=== PATIENT | female | born 1950 | race Caucasian/White ===

== ENCOUNTER → 2017-04-12 | Outpatient (CLI) | payer BC ==
[~2017-04-12] MED LIST: CLR10; CLTP; ESCI10TA17 PO; FROVA PO; MULT-506; RIZA10TA18; TOPI100T20
--- NOTE | 2017-04-12 13:27 | MAMMOGRAPHY REPORT ---
BILATERAL DIGITAL SCREENING MAMMOGRAM TOMOSYNTHESIS WITH CAD: 04/12/2017 CLINICAL HISTORY: Routine screening. Patient has no complaints. TECHNIQUE: Breast tomosynthesis in addition to standard 2D mammography was performed. Current study was also evaluated with a Computer Aided Detection (CAD) system. COMPARISON: Comparison is made to exams dated: 04/11/2016 mammogram, 04/08/2015 mammogram, 04/07/2014 m ammogram, 04/06/2013 mammogram, 04/03/2012 mammogram, and 04/02/2011 mammogram - [facility]. BREAST COMPOSITION: The tissue of both breasts is almost entirely fatty. FINDINGS: No suspicious masses, calcifications, or areas of architectural distortion are noted in ei ther breast. There has been no significant interval change compared to prior exams. There are stabl e post surgical changes from bilateral reduction mammoplasty. Scattered bilateral benign-appearing c alcifications are not significantly changed. Prominent lymph node overlying the right pectoralis mus gina on the MLO view is stable dating back to at least the 2007 exam. IMPRESSION: ACR BI-RADS CATEGORY 2: BENIGN There is no mammographic evidence of malignancy. A 1 year screening mammogram is recommended. The pa tient will receive written notification of the results. Approximately 10% of breast cancers are not detected with mammography. A negative mammographic report should not delay biopsy if a clinically suggestive mass is present. Tigist Weston M.D. /:04/12/2017 11:19:05 Ingredient Scaler: Evelia LIZAMA(Miquel)(Lois)(BD), [facility] letter sent: Normal 1/2 BI-RADS Code: ACR BI-RADS Category 2: Benign
== END | disposition home or self-care (01) ==
LOC: C.MAMM 10:25
PROVIDERS: ATTEND Family Medicine
DX: Z12.31 Encounter for screening mammogram for malignant neoplasm of breast (principal)

== ENCOUNTER 2018-02-01 23:41 | Emergency (ER) | payer BC ==
[~2018-02-01] VITALS: Ht 157.5 cm; Wt 64.6 kg
[~2018-02-01 23:41] MED LIST changes: -TOPI100T20; +TOPI100T20 PO
[2018-02-01 23:46] VITALS: TEMP 36.9; Ht 157.5 cm; Wt 64.6 kg
[2018-02-01] MEDS ORDERED: SODIUM CHLORIDE 0.9% 1000ML 1,000 ML IV STA (23:57)
[2018-02-01] MEDS ORDERED: ONDANSETRON INJ 2 MG/ML 2 ML VIAL IV STA (23:57)
[2018-02-02] MEDS ORDERED: FENTANYL CITRATE INJ 50 MCG/1 ML 2 ML VIAL IV STA (00:04)
--- NOTE | 2018-02-02 00:19 | EMERGENCY ROOM VISIT NOTE ---
History Report prepared by Gamal: Rony Coley Under the Supervision of: Dr. Ashley Rader M.D. First contact with patient: 23:50 Chief Complaint: ABDOMINAL PAIN Stated Complaint: STOMACH PAIN & BACK PAIN,VOMITING History of Present Illness The patient is a 67 year old female who presents to the Emergency Room with complaints of persistent vomiting since this afternoon. She notes that she has vomited four times today. She states that she was feeling fine earlier today. She reports that she has intermittent abdominal pain for a couple of weeks. She notes the abdominal pain is worsened during intercourse. She denies any diarrhea or abnormal vaginal bleeding. She notes the abdominal pain is primarily on her right side. She has a history of migraines and depression. She denies any other underlying medical problems. She denies any history of cholecystectomy. She denies any blood in her vomit. She denies any fevers. Per , the patient is hard of hearing. She notes that her last normal bowel movement was this morning. She reports eating a piece of broiled chicken, mashed potatoes, and a salad in a restaurant [id number] today. She notes that they had intercourse today as well and her abdomen began to hurt during and after intercourse. She denies any history of hysterectomy. She notes the vomiting is new. Source of History: patient, spouse/significant other Onset: since this afternoon Position: abdomen Quality: other (vomiting) Timing: other (persistent) Modifying Factors (Worsening): other (intercourse) Associated Symptoms: No diarrhea Note: She denies any abnormal vaginal bleeding. Review of Systems See HPI for pertinent positives & negatives. A total of 10 systems reviewed and were otherwise negative. Past Medical & Surgical Medical Problems: (1) varicose veins Surgical Problems: (1) H/O dilation and curettage (2) Hx of tonsillectomy Family History Aneurysm Cancer Kidney disease Kidney stones Social History Smoking Status: Never Smoker Smokeless Tobacco Use: No Alcohol Use: occasionally Marital Status: in relationship Housing Status: lives with significant other Occupation Status: employed Current/Historical Medications Scheduled Aripiprazole (Abilify), 5 MG PO DAILY Caffeine (Caffeine), 200 MG PO daily as directed Calcium Carbonate-Vitamin D (Calcium 600 + D), 2 TABS PO DAILY Escitalopram (Lexapro), 30 MG PO QPM Multivitamins/Minerals (Mvi With Minerals), 1 TAB PO DAILY Omeprazole (Prilosec), 20 MG PO QAM Probiotic Product (Mi-Pay), 1 CAP PO DAILY Ranitidine Hcl (Zantac), 300 MG PO HS Simvastatin (Zocor), 40 MG PO QPM Tamsulosin Hcl (Flomax), 0.4 MG PO DAILY Topiramate (Topamax), 100 MG PO BID Scheduled PRN Acetaminophen (Tylenol 8 Hour Arthritis), 650 MG PO Q8 PRN for Pain or Fever Hydrocodone/Acetaminophen 5MG/325MG ([place] 5MG/325MG), 1-2 TABLETS PO Q6 PRN for Pain Tramadol (Ultram), 50 MG PO Q6 PRN for Moderate Pain Allergies Coded Allergies: Aspirin (Unverified Allergy, Unknown, 02/02/18) Physical Exam Vital Signs Date Time Temp Pulse Resp B/P (MAP) Pulse Ox O2 Delivery O2 Flow Rate FiO2 02/02/18 03:59 76 16 134/82 98 02/02/18 02:44 90 18 114/74 95 Room Air 02/02/18 02:02 95 20 129/81 99 Room Air 02/02/18 00:39 84 20 139/91 97 Room Air 02/02/18 00:33 92 02/01/18 23:46 36.9 87 18 155/79 97 Room Air Physical Exam Vital signs reviewed. General: Well-appearing, in no significant distress. HEENT: No scleral icterus, PERRLA, neck supple. Atraumatic. Cardiovascular: Regular rate and rhythm, no extra sounds. Pulmonary: Clear to auscultation bilaterally, normal work of breathing. Abdomen: Soft, tender to palpation in RUQ with no rebound, no guarding, nondistended, positive bowel sounds. Musculoskeletal: Atraumatic, no peripheral edema. No CVA tenderness. Neurologic: Patient awake alert and oriented x 3 Skin: Warm, dry, no rash Medical Decision & Procedures ER Provider Diagnostic Interpretation: Radiology results as stated below per my review and radiologist interpretation: US RUQ: Mild right hydroureteronephrosis. Consider CT of the abdomen and pelvis to exclude an obstructing lesion. Gallbladder sludge. No gallstones, gallbladder wall thickening or pericholecystic fluid. Common bile duct is within normal limits measuring 4 mm. Liver is unremarkable. Radiologist: Luca Piedra MD Study ready at 01:43 and initial results transmitted at 02:01 CT ABDOMEN & PELVIS With Contrast: Impression: 4 mm calculus within the mid to distal right ureter which causes mild hydroureteronephrosis. There are additional calcifications seen with the deep pelvis which are favored to represent phleboliths and less likely distal ureteral calculi. There are additional nonobstructing calculi within both kidneys. Additional findings: Lower thorax demonstrates dependent atelectasis. Liver, gallbladder, spleen, pancreas and adrenal glands are unremarkable. Appendix is not visualized. Stomach, small bowel, and colon are unremarkable. No acute osseous abnormality. Radiologist: Luca Piedra MD Study ready at 02:05 and initial results transmitted at 02:25 Laboratory Results 02/02/18 00:28 Red Blood Count 4.67, Mean Corpuscular Volume 89.7, Mean Corpuscular Hemoglobin 30.4, Mean Corpuscular Hemoglobin Concent 33.9, Mean Platelet Volume 10.2, Neutrophils (%) (Auto) 85.8, Lymphocytes (%) (Auto) 9.1, Monocytes (%) (Auto) 4.1, Eosinophils (%) (Auto) 0.3, Basophils (%) (Auto) 0.4, Neutrophils # (Auto) 9.67, Lymphocytes # (Auto) 1.02, Monocytes # (Auto) 0.46, Eosinophils # (Auto) 0.03, Basophils # (Auto) 0.04 02/02/18 00:28 Test 02/02/18 00:25 02/02/18 00:28 Urine Color ORANGE Urine Appearance TURBID (CLEAR) Urine pH 8.5 (4.5-7.5) Urine Specific [place] 1.017 (1.000-1.030) Urine Protein NEG (NEG) Urine Glucose (UA) NEG (NEG) Urine Ketones NEG (NEG) Urine Occult Blood 3+ (NEG) Urine Nitrite NEG (NEG) Urine Bilirubin NEG (NEG) Urine Urobilinogen NEG (NEG) Urine Leukocyte Esterase SMALL (NEG) Urine WBC (Auto) 1-5 /hpf (0-5) Urine RBC (Auto) >30 /hpf (0-4) Urine Hyaline Casts (Auto) 1-5 /lpf (0-5) Urine Epithelial Cells (Auto) >30 /lpf (0-5) Urine Bacteria (Auto) NEG (NEG) White Blood Count 11.25 K/uL (4.8-10.8) Red Blood Count 4.67 M/uL (4.2-5.4) Hemoglobin 14.2 g/dL (12.0-16.0) Hematocrit 41.9 % (37-47) Mean Corpuscular Volume 89.7 fL (80-100) Mean Corpuscular Hemoglobin 30.4 pg (25-34) Mean Corpuscular Hemoglobin Concent 33.9 g/dl (32-36) Platelet Count 232 K/uL (130-400) Mean Platelet Volume 10.2 fL (7.4-10.4) Neutrophils (%) (Auto) 85.8 % Lymphocytes (%) (Auto) 9.1 % Monocytes (%) (Auto) 4.1 % Eosinophils (%) (Auto) 0.3 % Basophils (%) (Auto) 0.4 % Neutrophils # (Auto) 9.67 K/uL (1.4-6.5) Lymphocytes # (Auto) 1.02 K/uL (1.2-3.4) Monocytes # (Auto) 0.46 K/uL (0.11-0.59) Eosinophils # (Auto) 0.03 K/uL (0-0.5) Basophils # (Auto) 0.04 K/uL (0-0.2) RDW Standard Deviation 43.9 fL (36.4-46.3) RDW Coefficient of Variation 13.5 % (11.5-14.5) Immature Granulocyte % (Auto) 0.3 % Immature Granulocyte # (Auto) 0.03 K/uL (0.00-0.02) Anion Gap 8.0 mmol/L (3-11) Est Creatinine Clear Calc Drug Dose 44.0 ml/min Estimated GFR () 59.9 Estimated GFR (Non- 51.7 BUN/Creatinine Ratio 20.8 (10-20) Calcium Level 9.4 mg/dl (8.5-10.1) Magnesium Level 2.0 mg/dl (1.8-2.4) Total Bilirubin 0.4 mg/dl (0.2-1) Direct Bilirubin < 0.1 mg/dl (0-0.2) Aspartate Amino Transf (AST/SGOT) 15 U/L (15-37) Alanine Aminotransferase (ALT/SGPT) 21 U/L (12-78) Alkaline Phosphatase 80 U/L (45-117) Total Protein 7.5 gm/dl (6.4-8.2) Albumin 3.9 gm/dl (3.4-5.0) Lipase 99 U/L (73-393) Laboratory results per my review. Medications Administered Medications (Trade) Dose Ordered Sig/Phani Route Start Time Stop Time Status Last Admin Dose Admin Sodium Chloride 1,000 ml @ 250 mls/hr Q4H STAT IV 02/01/18 23:57 02/02/18 03:56 DC 02/02/18 00:37 250 MLS/HR Ondansetron HCl (Zofran Inj) 4 mg NOW STAT IV 02/01/18 23:57 02/02/18 00:00 DC 02/02/18 00:38 4 MG Fentanyl Citrate (Fentanyl Inj) 50 mcg NOW STAT IV 02/02/18 00:04 02/02/18 00:05 DC 02/02/18 00:38 50 MCG Morphine Sulfate (MoRPHine SULFATE INJ) 2 mg NOW STAT IV 02/02/18 01:06 02/02/18 01:07 DC 02/02/18 01:12 2 MG ED Course 0000: Past medical records reviewed. The patient was evaluated in room B8. A complete history and physical examination was performed. 2357: Ordered Zofran 4 mg IV and Sodium Chloride 1,000 ml @ 250 mls/hr IV 0004: Ordered Fentanyl 50 mcg IV 0106: Ordered Morphine Sulfate 2 mg IV 0306: I reassessed the patient at this time. I discussed the results and treatment plan with the patient. I answered all pertaining questions that she had. She expressed understanding and verbalized agreement. The patient will be discharged home. 0330: Ordered Zofran 1 homepack PO and Hydrocodone Bitart/Acetaminophen 1 homepack PO Medical Decision Differential diagnosis: Etiologies such as gastroenteritis, food borne illness, infections, appendicitis , diverticulitis, inflammatory bowel disease, obstruction, GI bleed, biliary pathology, as well as others were entertained. This pt was evaluated and appeared to be in some discomfort. Pt has tenderness to RUQ on exam. IV access was obtained and lab work was drawn. PT was placed on the cardiac cath lab technologist. She wa sgiven IV fentanyl and zofran for pain. US RUQ was performed and is negative for acute cholecystitis, but reveals hydronephrosis. UA is significant for blood. Pt was then sent to CT r/o renal calculi. This study was + for a 4mm calculi in the mid-distal right ureter. Pt was advised of the findings. She was given a norco HP and a Rx. She was also started on flomax for 7 days. Pt was given urologic f/u and CM will assist in scheduling this week with Dr Hartmann. Pt will return to the ED for worsening of symptoms or any medical concerns. Medication Reconcilliation Current Medication List: was personally reviewed by me Blood Pressure Screening Patient's blood pressure: Elevated blood pressure Blood pressure disposition: Elevated BP felt to be situational Impression Primary Impression: Right ureteral calculus Scribe Attestation The scribe's documentation has been prepared under my direction and personally reviewed by me in its entirety. I confirm that the note above accurately reflects all work, treatment, procedures, and medical decision making performed by me. Departure Information Dispostion Home / Self-Care Prescriptions Hydrocodone/Acetaminophen 5MG/325MG ([place] 5MG/325MG) Tab 1-2 TABLETS PO Q6 Y for Pain, #20 TAB Prov: Ashley Rader M.D. 02/02/18 Tamsulosin Hcl (FLOMAX) 0.4 Mg Cap 0.4 MG PO DAILY for 7 Days, #7 CAP Prov: Ashley Rader M.D. 02/02/18 Referrals Willem Nelson III, M.D. (PCP) Enoch Hartmann MD, Urology Forms Call Back Authorization, HOME CARE DOCUMENTATION FORM, IMPORTANT VISIT INFORMATION Patient Instructions My [facility] Additional Instructions Diagnosis: Right ureteral calculus [place] 1-2 tabs every 6 hours as needed for severe pain. Do not drive or take Tylenol with this medication. Flomax 0.4 mg 1 time daily Drink plenty of clear fluids. You should receive a phone call Saturday with an appointment time for urology consultation within the next week or so. Please see Dr. Hartmann's information below. Call the emergency department at [phone] if you have not heard from them by Saturday. Return to the emergency department for worsening symptoms or any medical concerns.
[2018-02-02 00:42] LABS: HEMATOCRIT 41.9 % (37-47); HEMOGLOBIN 14.2 g/dL (12.0-16.0); MEAN CELL VOLUME 89.7 fL (80-100); MEAN CORPUSCULAR HEMOGLOBIN 30.4 pg (25-34); MEAN CORPUSCULAR HGB CONC 33.9 g/dl (32-36); MEAN PLATELET VOLUME 10.2 fL (7.4-10.4); PLATELET COUNT 232 K/uL (130-400); RED CELL DISTRIBUTION WIDTH CV 13.5 % (11.5-14.5); RED CELL DISTRIBUTION WIDTH SD 43.9 fL (36.4-46.3); WHITE BLOOD COUNT 11.25 K/uL (4.8-10.8)
[2018-02-02] MEDS ORDERED: OPTIRAY 320 IV PRN (01:00)
[2018-02-02 01:01] LABS: ALBUMIN 3.9 gm/dl (3.4-5.0); ALT/SGPT 21 U/L (12-78); AST/SGOT 15 U/L (15-37); BLOOD UREA NITROGEN 23 mg/dl (7-18); CALCIUM 9.4 mg/dl (8.5-10.1); CARBON DIOXIDE 25 mmol/L (21-32); CREATININE 1.11 mg/dl (0.60-1.20); GLUCOSE 149 mg/dl (70-99); LIPASE 99 U/L (73-393); POTASSIUM 3.7 mmol/L (3.5-5.1); SODIUM 139 mmol/L (136-145)
[2018-02-02 01:04] LABS: ALKALINE PHOSPHATASE 80 U/L (45-117); TOTAL PROTEIN 7.5 gm/dl (6.4-8.2)
[2018-02-02 01:06] LABS: BASO % 0.4 %; BASO ABS # 0.04 K/uL (0-0.2); EOS % 0.3 %; EOS ABS # 0.03 K/uL (0-0.5); IG# 0.03 K/uL (0.00-0.02); LYMPH % 9.1 %; LYMPH ABS # 1.02 K/uL (1.2-3.4); MONO % 4.1 %; MONO ABS # 0.46 K/uL (0.11-0.59); NEUT % 85.8 %; NEUT ABS # 9.67 K/uL (1.4-6.5)
[2018-02-02] MEDS ORDERED: MoRPHine SULFATE 2 MG/ML CARP IV STA (01:06)
[2018-02-02] MEDS ORDERED: ABL/5 PO (02:56)
[2018-02-02] MEDS ORDERED: ACET650T97 PO (02:56)
[2018-02-02] MEDS ORDERED: CALC-20 PO (02:57)
[2018-02-02] MEDS ORDERED: RANI300T2 PO (02:57)
[2018-02-02] MEDS ORDERED: SIMV40TA4 PO (02:59)
[2018-02-02] MEDS ORDERED: TRAM-10 PO (03:00)
[2018-02-02] MEDS ORDERED: MULT-513 PO (03:01)
[2018-02-02] MEDS ORDERED: PRLSR20 PO (03:01)
[2018-02-02] MEDS ORDERED: PROBCAP PO (03:01)
[2018-02-02] MEDS ORDERED: CAFF200T13 PO (03:02)
[2018-02-02] MEDS ORDERED: TAMS0.4C38 PO (03:29)
[2018-02-02] MEDS ORDERED: HYDR-5688 PO (03:29)
[2018-02-02] MEDS ORDERED: ONDANSETRON HOME PACK 4MG OD TAB PO ONE (03:30)
[2018-02-02] MEDS ORDERED: NORCO 5/325MG HOME PACK PO ONE (03:30)
[2018-02-02 03:59] VITALS: BP 134/82; PULSE 76; O2SAT 98
--- NOTE | 2018-02-02 07:50 | DIAGNOSTIC IMAGING REPORT ---
BILIARY ULTRASOUND CLINICAL HISTORY: Right upper quadrant abdominal pain COMPARISON STUDY: No previous studies for comparison. FINDINGS: The pancreas was nonvisualized. No focal hepatic masses were visualized. No gallstones are visualized. There is mildly echogenic bile within the gallbladder. There is no gallbladder wall thickening. There is no pericholecystic fluid. There is no ductal dilatation. The common bile duct measured 4 mm. There is moderate right-sided hydronephrosis and dilatation of the proximal right ureter. IMPRESSION: 1. Right-sided hydronephrosis and hydroureter. CT scanning should be considered in follow-up to evaluate for a cause of ureteral obstruction. 2. Nondiagnostic evaluation the pancreas 3. No gallstones. No ductal dilatation. Normal liver. Electronically signed by: Elfego Tarango M.D. 02/02/2018 7:49 AM Dictated Date/Time: 02/02/2018 7:47 AM
--- NOTE | 2018-02-02 07:57 | DIAGNOSTIC IMAGING REPORT ---
CT SCAN OF THE ABDOMEN AND PELVIS WITHOUT CONTRAST CLINICAL HISTORY: Right-sided hydronephrosis. Abnormal biliary ultrasound. Right-sided abdominal pain. COMPARISON STUDY: Biliary ultrasound dated 02/02/2018 TECHNIQUE: CT scan of the abdomen and pelvis was performed from the lung bases to the proximal femurs. Images are reviewed in the axial, sagittal, and coronal planes. IV contrast was not administered for this examination. A dose lowering technique was utilized adhering to the principles of ALARA. CT DOSE: 292.11 mGy.cm FINDINGS: Lower chest: There are minimal basilar atelectatic changes. Liver: The unenhanced liver is normal in size, contour, and attenuation. There is no intrahepatic biliary ductal dilatation. Gallbladder: Unremarkable. Spleen: Normal in size and attenuation. Pancreas: Unremarkable. Adrenal glands: Unremarkable. Kidneys: There are several left renal calculi, the largest of which measures 5 mm. There is a 4 mm lower pole right renal calculus. There is right-sided perinephric stranding. There is right-sided hydronephrosis and hydroureter. There is an obstructing mid right ureteral calculus measuring 4 mm. Bowel: There is fecal retention. There are no transition zones indicate bowel obstruction. There is no acute diverticulitis. There are no findings to indicate acute appendicitis (the appendix was not visualized with certainty). Peritoneum: There is no intraperitoneal free air or abdominal ascites. Vasculature: The abdominal aorta is normal in course and caliber. Adenopathy: None. Pelvic viscera: The bladder, and pelvic viscera are unremarkable. Skeletal structures: No destructive osseous lesions are seen. IMPRESSION: 1. No evidence of bowel obstruction. No evidence of free air 2. Bilateral nephrolithiasis 3. 4 mm mid right ureteral calculus with secondary obstructive change Electronically signed by: Elfego Tarango M.D. 02/02/2018 7:56 AM Dictated Date/Time: 02/02/2018 7:53 AM
== END 2018-02-02 03:59 | disposition home or self-care (01) ==
LOC: C.EDB 23:43
DX: N20.1 Calculus of ureter (principal); I83.90 Asymptomatic varicose veins of unspecified lower extremity; Z88.6 Allergy status to analgesic agent; Z90.89 Acquired absence of other organs; Z98.890 Other specified postprocedural states; Z84.1 Family history of disorders of kidney and ureter; Z82.49 Family history of ischemic heart disease and other diseases of the circulatory system

== ENCOUNTER → 2018-02-05 | Outpatient (CLI) | payer BC ==
[~2018-02-05] MED LIST changes: +ABL/5 PO; +ACET650T97 PO; +CAFF200T13 PO; +CALC-20 PO; -CLR10; -CLTP; -FROVA PO; +HYDR-5688 PO; -MULT-506; +MULT-513 PO; +PRLSR20 PO; +PROBCAP PO; +RANI300T2 PO; -RIZA10TA18; +SIMV40TA4 PO; +TAMS0.4C38 PO; +TRAM-10 PO
== END | disposition home or self-care (01) ==
LOC: C.PATHSPEC 17:03
PROVIDERS: ATTEND Urology
DX: N20.1 Calculus of ureter (principal)

== ENCOUNTER 2018-03-06 10:59 | Day surgery (SDC) | payer BC ==
[2018-02-20 10:44] VITALS: BMI 26.0
--- NOTE | 2018-02-20 11:15 | PAT Medication Instructions ---
Service Date Feb 20, 2018. Current Home Medication List Acetaminophen (Tylenol 8 Hour Arthritis), 650 MG PO Q8 PRN for Pain or Fever Aripiprazole (Abilify), 5 MG PO QPM Caffeine (Caffeine), 200 MG PO QAM Calcium Carbonate-Vitamin D (Calcium 600 + D), 2 TABS PO BID Escitalopram (Lexapro), 30 MG PO QPM Hydrocodone/Acetaminophen 5MG/325MG ([place] 5MG/325MG), 1-2 TABLETS PO Q6 PRN for Pain Multivitamins/Minerals (Mvi With Minerals), 1 TAB PO QAM Omeprazole (Prilosec), 20 MG PO QAM Ondansetron Hcl (Zofran), 4 MG PO for Nausea Probiotic Product (WALTOP), 1 CAP PO QAM Ranitidine Hcl (Zantac), 300 MG PO HS Simvastatin (Zocor), 40 MG PO QPM Tamsulosin Hcl (Flomax), 0.4 MG PO QAM Topiramate (Topamax), 100 MG PO BID Tramadol (Ultram), 50 MG PO Q6 PRN for Moderate Pain Medication Instructions For Your Scheduled Surgery - Hold the following medications the morning of surgery: Caffeine (Caffeine), 200 MG PO QAM Calcium Carbonate-Vitamin D (Calcium 600 + D), 2 TABS PO BID Multivitamins/Minerals (Mvi With Minerals), 1 TAB PO QAM Probiotic Product (WALTOP), 1 CAP PO QAM - Take the following medications the morning of surgery with a sip of water: Acetaminophen (Tylenol 8 Hour Arthritis), 650 MG PO Q8 PRN for Pain or Fever ( if needed, can be taken up to four hours before surgery) Hydrocodone/Acetaminophen 5MG/325MG ([place] 5MG/325MG), 1-2 TABLETS PO Q6 PRN for Pain (if needed, can be taken up to four hours before surgery) Ondansetron Hcl (Zofran), 4 MG PO for Nausea (if needed) Omeprazole (Prilosec), 20 MG PO QAM Tamsulosin Hcl (Flomax), 0.4 MG PO QAM Topiramate (Topamax), 100 MG PO BID Tramadol (Ultram), 50 MG PO Q6 PRN for Moderate Pain (if needed, can be taken up to four hours before surgery) - Take the following medications as scheduled the night before surgery: Acetaminophen (Tylenol 8 Hour Arthritis), 650 MG PO Q8 PRN for Pain or Fever ( if needed) Aripiprazole (Abilify), 5 MG PO QPM Calcium Carbonate-Vitamin D (Calcium 600 + D), 2 TABS PO BID Escitalopram (Lexapro), 30 MG PO QPM Hydrocodone/Acetaminophen 5MG/325MG ([place] 5MG/325MG), 1-2 TABLETS PO Q6 PRN for Pain (if needed) Ondansetron Hcl (Zofran), 4 MG PO for Nausea (if needed) Ranitidine Hcl (Zantac), 300 MG PO HS Simvastatin (Zocor), 40 MG PO QPM Topiramate (Topamax), 100 MG PO BID Tramadol (Ultram), 50 MG PO Q6 PRN for Moderate Pain (if needed) If you have any questions please call us at [phone] or [phone] or [phone]
[2018-02-20 11:33] LABS: CALCIUM 9.3 mg/dl (8.5-10.1); CREATININE 0.96 mg/dl (0.60-1.20)
--- NOTE | 2018-02-20 11:52 | DIAGNOSTIC IMAGING REPORT ---
CHEST 2 VIEWS ROUTINE CLINICAL HISTORY: Preoperative chest COMPARISON STUDY: No previous studies for comparison. FINDINGS: The cardiac and mediastinal contours are normal. There is no evidence of focal pulmonary consolidation. There is no evidence of failure. No pleural effusions are visualized.[ IMPRESSION: No active disease in the chest. Electronically signed by: Elfego Tarango M.D. 02/20/2018 11:51 AM Dictated Date/Time: 02/20/2018 11:50 AM
[2018-02-20 13:24] LABS: BASO ABS # 0.05 K/uL (0-0.2); EOS % 1.9 %; EOS ABS # 0.09 K/uL (0-0.5); HEMOGLOBIN 13.6 g/dL (12.0-16.0); IG# 0.01 K/uL (0.00-0.02); LYMPH % 26.3 %; LYMPH ABS # 1.26 K/uL (1.2-3.4); MEAN CELL VOLUME 91.7 fL (80-100); MEAN CORPUSCULAR HEMOGLOBIN 29.7 pg (25-34); MEAN CORPUSCULAR HGB CONC 32.4 g/dl (32-36); MEAN PLATELET VOLUME 10.3 fL (7.4-10.4); MONO % 7.7 %; MONO ABS # 0.37 K/uL (0.11-0.59); NEUT % 62.9 %; NEUT ABS # 3.02 K/uL (1.4-6.5); PLATELET COUNT 262 K/uL (130-400); RED CELL DISTRIBUTION WIDTH CV 13.6 % (11.5-14.5); RED CELL DISTRIBUTION WIDTH SD 44.8 fL (36.4-46.3)
[~2018-03-06] VITALS: Ht 157.5 cm; Wt 64.5 kg
[~2018-03-06 10:59] MED LIST changes: +ATROPINE SULFATE 0.1 MG/ML 5ML SYR IV PRN; +CIPROFLOXACIN / D5W 400 MG IV SCH; +EpHEDrine SULFATE INJ 50 MG/ML AMP IV PRN; +FENTANYL CITRATE INJ 50 MCG/1 ML 2 ML VIAL IV PRN; +LACTATED RINGER'S 1000ML 1,000 ML IV SCH; +ONDA4TAB46 PO; +ONDANSETRON INJ 2 MG/ML 2 ML VIAL IV PRN
[2018-03-06 11:33] VITALS: BP 118/74; PULSE 83; TEMP 36.9; O2SAT 97; Ht 157.5 cm; Wt 64.5 kg
[2018-03-06] MEDS ORDERED: SCOPOLAMINE 1.5 MG TDSY TD ONE ×2 (12:00→12:14)
--- NOTE | 2018-03-06 12:17 | History & Physical Bridge Note ---
H&P Re-Evaluation Bridge Note: I have examined the patient, reviewed the History & Physical and in the interval since the performance of the History & Physical I have noted the following changes of clinical significance: No changes noted
[2018-03-06] MEDS ORDERED: CIPR1TAB10 PO (12:20)
[2018-03-06] MEDS ORDERED: OXYC7.5T65 PO (12:20)
[2018-03-06] MEDS ORDERED: PHEN-876 PO (12:20)
--- NOTE | 2018-03-06 12:21 | Discharge Instructions ---
Discharge Instructions Date of Service March 06, 2018. Admission Reason for Admission: Nephrolithiasis Discharge Discharge Diagnosis / Problem: Stone Discharge Goals Goal(s): Decrease discomfort, Improve function Activity Recommendations Activity Limitations: resume your previous activity Lifting Limitations: gradually increase as tolerated Exercise/Sports Limitations: gradually increase as tolerated . Instructions / Follow-Up Instructions / Follow-Up May have blood in urine or pain with urination. May have plevic discomfort. Call for any fevers or chills. Current Hospital Diet Patient's current hospital diet: Discharge Diet Recommended Diet: Regular Diet Procedures Procedures Performed: Cystoscopy and Right Ureteroscopy with laser Pending Studies Studies pending at discharge: no Medical Emergencies . Who to Call and When: Medical Emergencies: If at any time you feel your situation is an emergency, please call 911 immediately. . Non-Emergent Contact Non-Emergency issues call your: Primary Care Provider, Urologist Call Non-Emergent contact if: you have a fever, temperature is above 101, temperature is above 101.5, your pain is not controlled, your pain is worsening , your pain is unusual for you . . "Provider Documentation" section prepared by Efrain Vilchis. .
[2018-03-06] MEDS ORDERED: OXYCODONE/ACETAMINOPHEN 7.5-325 TAB PO PRN (12:30)
[2018-03-06] MEDS ORDERED: FENTANYL CITRATE INJ 50 MCG/1 ML 2 ML VIAL ONE (13:17)
[2018-03-06] MEDS ORDERED: LIDOCAINE HCL 2% 2 ML VIAL (20MG/ML) ONE (13:17)
[2018-03-06] MEDS ORDERED: PROPOFOL IV EMULSION 10 MG/ML 20 ML VIAL ONE (13:17)
[2018-03-06] MEDS ORDERED: Cysto-Conray II 17.2% 250ML BOTTLE ONE (13:18)
[2018-03-06] MEDS ORDERED: ONDANSETRON INJ 2 MG/ML 2 ML VIAL ONE (13:46)
[2018-03-06] MEDS ORDERED: DEXAMETHASONE SOD INJ 4 MG/ML VIAL ONE (13:46)
--- NOTE | 2018-03-06 14:01 | [facility] Operative Report ---
Operative Report Operative Date March 06, 2018. Pre-Operative Diagnosis Right ureteral and renal stones Post-Operative Diagnosis Same Procedure(s) Performed Cystoscopy with right stent, retrograde pyelogram, ureteroscopy, and laser lithotripsy Surgeon Deng Estimated Blood Loss Minimal Findings Right ureteral and renal stone Specimens Stone fragment Drains 6 Fr Multilength on right Anesthesia Type General Complication(s) none Disposition Recovery Room / PACU Indications Multiple right stones with obstructing mid ureteral stone. Risks and benefits discussed. Description of Procedure Patient was consented and brought back to the operating room. Patient was placed under anesthesia in the supine position and moved to the dorsal lithotomy position. Patient was prepped and draped in the regular sterile fashion. A time out was completed. A 30degree Cystoscope was placed into the bladder and the entire bladder was examined. The UO's were identified. The UO was cannulized with a catheter and a retrograde pyelogram was completed. A wire was then placed. A ureteral access sheath and second safety wire was placed. The flexible ureteroscope was taken into the left ureter. The entire ureter and renal pelvis were examined. The stones were identified. A laser fiber was selected and the stones were pulverized to dust and small fragments. The entire area was once again examined. No residual large fragments or areas of concern were noted. The scope was slowly removed with the wire left in place. Contrast was placed through the scope for a pyelogram to assist in stent placement. The entire ureter was examined as the scope was slowly removed. No obstructions or other areas of concern were noted. With the wire in place, a 6 Fr Double J stent was placed. It was confirmed with fluoroscopy. With the stent in place, the bladder was emptied. The scope was removed. The patient was cleaned, aroused from anesthesia, and transferred to the pacu in stable condition having tolerated the procedure well with no complications. I was present and participated in all aspects of the procedure. The patient will be monitored in the PACU until transferred. I attest to the content of the Intraoperative Record and any orders documented therein. Any exceptions are noted below.
[2018-03-06] MEDS ORDERED: FLUC100T4 PO (14:02)
--- NOTE | 2018-03-06 14:12 | DIAGNOSTIC IMAGING REPORT ---
RETROGRADE INCLUDES KUB CLINICAL HISTORY: 67 years-old Female presenting with RIGHT LASER LITHOTRIPSY, STENT INSERTION. TECHNIQUE: 7 fluoroscopic image(s) recorded as part of an intraoperative procedure. COMPARISON: CT from 02/02/2018. FINDINGS/IMPRESSION: The right ureter was opacified with contrast. A guidewire was introduced into the right renal collecting system, which was mildly dilated. Subsequently, a right ureteral stent was placed. Please see surgical report for further details. Dose area product (mGy.cm^2): 4524.7. Fluoroscopy time: 97 seconds. Number of fluoroscopic spot images: 0. Electronically signed by: Solis Franz M.D. 03/06/2018 2:10 PM Dictated Date/Time: 03/06/2018 2:09 PM
--- NOTE | 2018-03-06 14:59 | Anesthesiology Progress Note ---
Anesthesia Post Op Note Date & Time March 06, 2018 at 14:48 Vital Signs Pain Intensity: 0 Vital Signs Past 12 Hours Date Time Temp Pulse Resp B/P (MAP) Pulse Ox O2 Delivery O2 Flow Rate FiO2 03/06/18 14:40 74 12 124/77 98 Room Air 03/06/18 14:30 77 12 128/78 100 Oxymask 3 03/06/18 14:20 77 12 134/85 100 Oxymask 5 03/06/18 14:12 36.2 76 12 141/85 100 Oxymask 10 03/06/18 11:33 36.9 83 18 118/74 (89) 97 Room Air Notes Anesthetic Complications: When the patient was emerging from anesthesia she bit down hard as Lisa Orosco, the vest backer was attempting to remove it. Lisa, in an attempt to open the mouth pushed down with her thumb on the anterior mandible. The lip pulled away from the teeth causing a laceration at the gum line anteriorly. I packed it with gauze for approximately 45 minutes then removed the gauze. The bleeding had stopped and the mouth was dry. I explained what had happened to her and that it should heal within a couple of days. I encouraged her to swish with salt water a couple of times a day and follow up with her private MD if there were any more problems.
[2018-03-06 15:10] VITALS: BP 120/71; PULSE 74; TEMP 36.6; O2SAT 97
[2018-03-06 15:40] VITALS: BP 115/65; PULSE 86; O2SAT 98
[2018-03-06 16:05] VITALS: BP 131/72; PULSE 84; TEMP 37; O2SAT 96
--- NOTE | 2018-03-06 18:39 | Anesthesiology Progress Note ---
Anesthesia Progress Note Date of Service March 06, 2018. Progress Notes At 1500 on 03/06/18 in PACU: Pt awake in PACU. Dr. Keen and I educated pt on the oral soft tissue injury to lower lip/anterior lower gum line (lower lip frenulum area). Pt informed: on emergence/removal of LMA she firmly bit down inhibiting removal. Pt would not open mouth to voice command, I then applied a few seconds of pressure with my thumb to lower lip/gums inside her mouth to allow LMA to be removed. Upon applying a face mask, blood was noted in the mouth. Gauze inserted to dry mouth, then pt taken to PACU on 10L SFM. VSS. Dr. Keen notified to meet in PACU to further evaluate pt. 2x2 [address] Keen to lower lip to apply pressure to stop bleeding. During the bedside discussion/reevaluation at 1500, gauze had been removed and mouth was dry. Laceration/tear evaluated to be approx 1/4-1/[address] Keen also educated pt that the wound should heal without medical intervention within the next few days. Pt verbalized understanding. Pt denies pain at this time.
--- NOTE | 2018-03-10 10:35 | Progress Note ---
Progress Note Date of Service March 10, 2018. Progress Note I called the patient today and asked how she was doing. She said her gum was healing well but it still hurts a little. I told her to continue to swish with salt water until it is healed and call us if she has any problems. She agreed to do this.
== END 2018-03-06 16:06 | disposition home or self-care (01) ==
LOC: C.ACU 10:59
PROVIDERS: ATTEND Urology
DX: N20.1 Calculus of ureter (principal); N20.0 Calculus of kidney; G47.33 Obstructive sleep apnea (adult) (pediatric); Z88.8 Allergy status to other drugs, medicaments and biological substances; G21.9 Secondary parkinsonism, unspecified; Z79.899 Other long term (current) drug therapy; Z98.890 Other specified postprocedural states; Z90.89 Acquired absence of other organs; Z98.41 Cataract extraction status, right eye; Z98.42 Cataract extraction status, left eye; Z82.3 Family history of stroke

== ENCOUNTER → 2018-06-17 | Outpatient (CLI) | payer BC ==
[~2018-06-17] MED LIST changes: -ATROPINE SULFATE 0.1 MG/ML 5ML SYR IV PRN; +CIPR-255 PO; -CIPROFLOXACIN / D5W 400 MG IV SCH; +DTR/5 PO; -ESCI10TA17 PO; +ESCI1TAB18 PO; -EpHEDrine SULFATE INJ 50 MG/ML AMP IV PRN; -FENTANYL CITRATE INJ 50 MCG/1 ML 2 ML VIAL IV PRN; -LACTATED RINGER'S 1000ML 1,000 ML IV SCH; -ONDANSETRON INJ 2 MG/ML 2 ML VIAL IV PRN; +OXYC7.5T65 PO
--- NOTE | 2018-06-17 13:15 | DIAGNOSTIC IMAGING REPORT ---
(DORA/BLAD)RETROPERITON COMP CLINICAL HISTORY: 67 years-old Female presenting with N20.0 Nephrolithiasis. TECHNIQUE: Real-time grayscale and limited color Doppler ultrasound imaging of the kidneys and bladder was performed. COMPARISON: CT from 02/02/2018. FINDINGS: Right kidney: Normal echogenicity of renal parenchyma. Right kidney measures 10.1 cm. No hydronephrosis. Twinkling artifact at the lower pole suggests the presence of a renal calculus. Left kidney: Normal echogenicity of renal parenchyma. Left kidney measures 11.0 cm. No hydronephrosis. No convincing evidence of calculus or mass. Bladder: Normal. Bilateral ureteral jets present. Other: The uterus demonstrates fluid within the endometrial cavity, nonspecific. No pathologic endometrial thickening. IMPRESSION: 1. No hydronephrosis. 2. Suspected right renal calculus. Bilateral nephrolithiasis evident on prior CT. 3. Nonspecific endometrial cavity fluid. No pathology thickening of the endometrium. Electronically signed by: Solis Franz M.D. 06/17/2018 1:13 PM Dictated Date/Time: 06/17/2018 1:05 PM
--- NOTE | 2018-06-17 13:32 | DIAGNOSTIC IMAGING REPORT ---
KUB CLINICAL HISTORY: 67 years-old Female presenting with N20.0 Nephrolithiasis. TECHNIQUE: Single supine view of the abdomen was obtained. COMPARISON: 04/21/[address] from 02/02/2018. FINDINGS: The left ureteral stent has been removed. Marked stool burden noted throughout the colon predominantly in the right and transverse colon. No bowel obstruction. No gross pneumoperitoneum. Allowing for bowel gas and stool, no calcifications to suggest nephrolithiasis. No calcifications along the courses of the ureters. Stable left pelvic phlebolith. Osteopenia may be present. Lung bases clear. IMPRESSION: 1. No radiographic evidence of renal or ureteral calculi allowing for the marked stool burden. Electronically signed by: Solis Franz M.D. 06/17/2018 1:31 PM Dictated Date/Time: 06/17/2018 1:29 PM
== END | disposition home or self-care (01) ==
LOC: C.ULTR 12:05
PROVIDERS: ATTEND Urology
DX: N20.0 Calculus of kidney (principal)